=== PATIENT | male | born 1965 | race Caucasian/White ===

== ENCOUNTER 2024-04-12 14:27 | Inpatient (IN) | payer BC ==
[2024-04-12] MEDS ORDERED: Ondansetron PF 4 MG/2 ML Vial ONE ×2 (14:47→16:14)
[2024-04-12] MEDS ORDERED: Mag-Al 1200 mg/1200 mg/30 ML UDCUP ONE (15:09)
[2024-04-12] MEDS ORDERED: Lidocaine Viscous Sol 2% 15 ml UD Cup ONE (15:09)
[2024-04-12 15:22] LABS: #Basophils 0.01 10x3/uL (0.0-0.2); #Eosinophils 0.17 10x3/uL (0.0-0.5); #Monocytes 0.55 10x3/uL (0.0-1.1); %Basophils 0.1 % (0.0-2.0); %Eosinophils 2.1 % (0.0-6.0); %Lymphocytes 11.9 % (18.0-47.0); %Monocytes 6.7 % (0.0-10.0); Hematocrit 41.1 % (38.8-50.0); Hemoglobin 13.9 g/dL (13.5-17.5); Mean Corpuscular HGB CONC 33.8 g/dL (32.0-36.0); Mean Corpuscular Hemoglobin 29.7 pg (27.0-33.0); Mean Corpuscular Volume 87.8 fL (81.2-95.1); Mean Platelet Volume 11.2 fL (7.4-10.4); Platelet Count 218 10x3/uL (150-450); RBC Distribution Width 13.3 % (11.5-14.5); Red Blood Cell (RBC) Count 4.68 10x6/uL (4.32-5.72); White Blood Cell (WBC) Count 8.2 10x3/uL (3.5-10.5)
[2024-04-12 15:38] LABS: ALT (SGPT) 33 U/L (8-55); AST (SGOT) 17 U/L (5-34); Albumin 3.9 g/dL (3.5-5.0); Alkaline Phosphatase 72 U/L (40-110); Anion Gap 13 mmol/L (10-20); BUN (Urea Nitrogen) 13 mg/dL (8.4-25.7); Bilirubin, Total 0.3 mg/dL (0.2-1.2); Calc. Creatinine Clearance 0 mL/min (70-130); Carbon Dioxide 23 mmol/L (22-29); Chloride 104 mmol/L (98-107); Estimated GFR 85; Globulin 2.2 g/dL (2.4-3.5); Glucose 152 mg/dL (70-105); Potassium 4.2 mmol/L (3.5-5.1); Protein, Total 6.1 g/dL (6.0-8.3); Sodium 136 mmol/L (136-145)
[2024-04-12 15:44] LABS: Troponin I Less than 0.010 ng/mL (< 0.028)
[2024-04-12] MEDS ORDERED: Morphine 4 MG/ML VIAL ONE (15:52)
[2024-04-12] MEDS: Scopolamine 1 mg/72 hour Patch TD SCH (18:05)
[2024-04-12] MEDS: Sodium Chloride 0.9% 1,000 ML IV SCH (18:09)
[2024-04-12 18:14] VITALS: BMI 26.4
[2024-04-12 19:11] LABS: Troponin I 0.013 ng/mL (< 0.028)
[2024-04-12] MEDS: Promethazine HCl 12.5 MG, Admixture Fee 1 EACH in Sodium Chloride 0.9% 50 ML IVPB SCH (19:56)
[2024-04-12] MEDS: Lidocaine 10 ML, Aluminum & Magnesium Hydroxide 30 ML SSW SCH (20:30)
[2024-04-12] MEDS: Lidocaine 2% Viscous Solution 20 ML, Aluminum & Magnesium Hydroxide 30 ML, Donnatal Eli... SSW SCH (20:46)
[2024-04-12] MEDS: Pantoprazole 40 MG VIAL IVP SCH (20:46)
[2024-04-12 21:09] LABS: Troponin I 0.012 ng/mL (< 0.028)
[2024-04-12] MEDS: hydrALAZINE 20 MG/ML VIAL SLOW IVP SCH (21:34)
[2024-04-13] MEDS: Lidocaine 2% Viscous Solution 10 ML, Aluminum & Magnesium Hydroxide 30 ML SSW SCH (00:17)
[2024-04-13] MEDS: Ondansetron PF 4 MG/2 ML Vial IVP PRN (00:17)
[2024-04-13] MEDS ORDERED: Acetaminophen 325 MG TAB PO PRN (08:18)
[2024-04-13] MEDS ORDERED: traMADol HCl 50 MG TAB PO PRN (08:18)
[2024-04-13] MEDS: Pantoprazole 40 MG VIAL IVP SCH (10:09)
[2024-04-13] MEDS ORDERED: Iopamidol 300 61% 100 ML VIAL FS ONE (10:17)
[2024-04-13 10:32] LABS: Magnesium 2.2 mg/dL (1.6-2.6)
[2024-04-13] MEDS: Losartan 25 MG TAB PO SCH (12:31)
[2024-04-13] MEDS: Enoxaparin 40 MG (0.4 mL) SYRINGE SC SCH (20:45)
[2024-04-13] MEDS: Calcium Carbonate 500 MG ChewTAB PO PRN (20:46)
[2024-04-13] MEDS: Morphine 2 MG/ML VIAL SLOW IVP PRN (21:00)
[2024-04-14 04:48] VITALS: TEMP 98.5
[2024-04-14 08:19] VITALS: BP 128/74
[2024-04-14] MEDS: Losartan 25 MG TAB PO SCH (08:26)
== END 2024-04-14 12:26 | disposition home or self-care (01) | DRG 392 ==
LOC: CSHERS 14:27 → OBSVTOIN 16:56 → UNDOADMOB 16:56 → INTOOBSV 16:56 → CSHTELE 16:56 → OBSVTOIN 04-14 09:01 → CSHTELE 04-14 09:01 → UNDODISIN 04-14 12:26
PROVIDERS: ADMIT Internal Medicine; ATTEND Internal Medicine
DX: R10.13 Epigastric pain (principal); R07.89 Other chest pain; R00.1 Bradycardia, unspecified; R11.0 Nausea; Z79.899 Other long term (current) drug therapy; Z88.8 Allergy status to other drugs, medicaments and biological substances; Z98.890 Other specified postprocedural states; Z88.1 Allergy status to other antibiotic agents; H53.8 Other visual disturbances; I25.10 Atherosclerotic heart disease of native coronary artery without angina pectoris; I10 Essential (primary) hypertension; Z82.49 Family history of ischemic heart disease and other diseases of the circulatory system; E66.9 Obesity, unspecified; Z68.26 Body mass index [BMI] 26.0-26.9, adult; E78.2 Mixed hyperlipidemia; F31.9 Bipolar disorder, unspecified
CPT/HCPCS: 36415; 71045; 74177; 80053; 83690; 83735; 83880; 84484; 85025; 93005; 93306; 96361; 96372; 96374; 96375; 96376; G0378; J0360; J1650; J2272; J2405; J2470; J2550; J7030